=== PATIENT | male | born 1985 | race Hispanic/Latino ===

== ENCOUNTER 2016-08-22 20:35 | Emergency (ER) | payer SELFPAY ==
--- NOTE | 2016-08-23 09:16 | RAD ---
08/23/2016 9:05 AM CHEST - 2 VIEWS History: Shortness of breath with palpitations. Comparison: 07/31/2008 Findings: Two views of the chest are obtained. The lungs are clear with out effusion or pneumothorax. The cardiomediastinal silhouette is unremarkable.. The osseous structures are intact.. IMPRESSION: No acute intrathoracic process.
== END 2016-08-22 21:59 | disposition home or self-care (01) ==
LOC: ED 20:35
DX: R06.02 Shortness of breath (principal); R00.1 Bradycardia, unspecified